=== PATIENT | female | born 1975 | race Caucasian/White ===

== ENCOUNTER → 2016-06-22 | Outpatient (CLI) | payer BC, OTHER ==
--- NOTE | 2016-06-22 09:50 | USB ---
Reason for exam: follow-up at short interval from prior study. History: Benign US biopsy breast VAD LT of the left breast, November 12, 2015. Benign US biopsy breast add'l VAD LT of the left breast, November 12, 2015. Taking hormonal contraceptives for 18 years. Physical Findings: Nurse did not find any significant physical abnormalities on exam. US Breast LT Left breast ultrasound including all four quadrants, the retroareolar region and axilla demonstrates a 0.8 x 0.4 x 0.8cm oval, cystic lesion at 2 o'clock, a 0.6 x 0.3 x 0.5cm oval, cystic lesion at 2 o'clock, a 0.4 x 0.4 x 0.6cm oval, mixed lesion at 2 o'clock, clip seen, recently biopsied and has the appearance of a cyst cluster now, a 0.9 x 0.7 x 1.7cm oval, cystic lesion at 3 o'clock and a 0.3 x 0.2 x 0.4cm oval lesion too small to characterize at 5 o'clock. A 6 month follow up mammogram recommended at which time patient will be due for annual exam. This can be performed in diagnostic clinic. These results were verbally communicated with the patient and result sheet given to the patient on 06/22/16. ASSESSMENT: Probably benign, BI-RAD 3 RECOMMENDATION: Follow-up diagnostic mammogram of both breasts in 6 months. FOX
== END | disposition home or self-care (01) ==
LOC: RADUSWWP 08:47
PROVIDERS: ATTEND Surgery
DX: R92.8 Other abnormal and inconclusive findings on diagnostic imaging of breast (principal)

== ENCOUNTER → 2016-12-27 | Outpatient (CLI) | payer BC, OTHER ==
--- NOTE | 2016-12-27 08:36 | MM ---
Reason for exam: additional evaluation requested from prior study. Last mammogram was performed 1 year and 1 month ago. History: Family history of breast cancer in 3 paternal aunts at age 50. Benign US biopsy breast VAD LT of the left breast, November 12, 2015. Benign US biopsy breast add'l VAD LT of the left breast, November 12, 2015. Taking hormonal contraceptives for 19 years. Physical Findings: Nurse Summary: 1 x 1cm nodule in the left breast at 1:30 (nurse ts). MG 3D Diag Mammo W/Cad ABHISHEK Bilateral CC and MLO view(s) were taken. Prior study comparison: November 12, 2015, left breast MG diagnostic mammo LT wo CAD. October 30, 2015, bilateral MG 3d screening mammo w/cad. The breast tissue is heterogeneously dense. This may lower the sensitivity of mammography. No suspicious calcifications are seen. Focal asymmetry bilateral upper outer quadrant, 8.3cm from the right nipple and 9.3cm from the left nipple. These results were verbally communicated with the patient and result sheet given to the patient on 12/27/16. ASSESSMENT: Incomplete: need additional imaging evaluation, BI-RAD 0 RECOMMENDATION: Ultrasound of both breasts. Manage patient on a clinical basis.
--- NOTE | 2016-12-27 08:38 | USB ---
Reason for exam: additional evaluation requested from abnormal screening. History: Family history of breast cancer in 3 paternal aunts at age 50. Benign US biopsy breast VAD LT of the left breast, November 12, 2015. Benign US biopsy breast add'l VAD LT of the left breast, November 12, 2015. Taking hormonal contraceptives for 19 years. US Breast Limited BILAT Right breast ultrasound demonstrates a 13 x 6 x 8mm cystic cluster at 10 o'clock, 6.5cm from nipple. Left breast ultrasound demonstrates a 14 x 7 x 17mm cystic lesion at BB at 2 o'clock, 8.2cm from nipple. These results were verbally communicated with the patient and result sheet given to the patient on 12/27/16. ASSESSMENT: Benign, BI-RAD 2 RECOMMENDATION: Routine screening mammogram of both breasts in 1 year.
== END | disposition home or self-care (01) ==
LOC: RADMAMWWP 06:58
PROVIDERS: ATTEND Surgery
DX: R92.8 Other abnormal and inconclusive findings on diagnostic imaging of breast (principal); R92.2 Inconclusive mammogram
CPT/HCPCS: 76642; G0204; G0279

== ENCOUNTER → 2019-02-18 | Outpatient (CLI) | payer BC ==
[2019-02-18 12:46] LABS: Basophils # (A) 0.1 k/uL (0-0.2); Basophils % (A) 1 %; Eosinophils # (A) 0.3 k/uL (0-0.7); Eosinophils % (A) 4 %; HCT 44.8 % (34.0-46.0); HGB 14.5 gm/dL (11.4-16.0); Lymphocytes # (A) 2.4 k/uL (1.0-4.8); Lymphocytes % (A) 33 %; MCH 29.2 pg (25.0-35.0); MCHC 32.4 g/dL (31.0-37.0); Mean Platelet Volume 8.2; Monocytes # (A) 0.2 k/uL (0-1.0); Monocytes % (A) 3 %; Neutrophils # (A) 4.3 k/uL (1.3-7.7); Neutrophils % (A) 57 %; Platelet Count 279 k/uL (150-450); RBC 4.98 m/uL (3.80-5.40); RDW 12.1 % (11.5-15.5); WBC 7.4 k/uL (3.8-10.6)
== END | disposition home or self-care (01) ==
LOC: LABPAT 11:24
PROVIDERS: ATTEND Obstetrics & Gynecology Obstetrics
DX: Z01.818 Encounter for other preprocedural examination (principal); Z01.812 Encounter for preprocedural laboratory examination; I10 Essential (primary) hypertension
CPT/HCPCS: 36415; 85025; 93005

== ENCOUNTER → 2019-02-19 | Outpatient (CLI) | payer BC ==
--- NOTE | 2019-02-19 09:30 | MM ---
Reason for exam: screening (asymptomatic). Last mammogram was performed 2 years and 2 months ago. History: Family history of breast cancer in 3 paternal aunts at age 50. Benign US biopsy breast VAD LT of the left breast, November 12, 2015. Benign US biopsy breast add'l VAD LT of the left breast, November 12, 2015. Taking hormonal contraceptives for 19 years. Physical Findings: A clinical breast exam by your physician is recommended on an annual basis and results should be correlated with mammographic findings. MG 3D Screening Mammo W/Cad Bilateral CC and MLO view(s) were taken. Prior study comparison: December 27, 2016, bilateral MG 3d diag mammo w/cad ABHISHEK. November 12, 2015, left breast MG diagnostic mammo LT wo CAD. The breast tissue is heterogeneously dense. This may lower the sensitivity of mammography. Bilateral upper outer quadrant focal asymmetries correlate with cysts on the prior ultrasound. Two left biopsy markers noted. ASSESSMENT: Benign, BI-RAD 2 RECOMMENDATION: Routine screening mammogram of both breasts in 1 year.
== END | disposition home or self-care (01) ==
LOC: RADMAMWWP 07:00
PROVIDERS: ATTEND Obstetrics & Gynecology Obstetrics
DX: Z12.31 Encounter for screening mammogram for malignant neoplasm of breast (principal); Z80.3 Family history of malignant neoplasm of breast
CPT/HCPCS: 77063; 77067

== ENCOUNTER 2019-03-05 07:32 | Day surgery (SDC) | payer BC ==
[2019-03-01 09:47] VITALS: BMI 28.3
[~2019-03-05 07:32] MED LIST: DEXAMETHASONE SOD PHOSPHATE 10 MG/ML 1 ML VIAL IV ONE; HYDROmorphone 0.5 MG/0.5 ML SYRINGE IVP PRN; LACTATED RINGERS 1,000 ML IV SCH; LIDOCAINE 1% 20 ML VIAL (10MG/ML) FOR IV START INTRADERMA PRN; ONDANSETRON 4 MG/2 ML VIAL IVP ONE; Pre Op ABX Message 1 EACH MISC MISCELLANE ONE; fentaNYL (PF) 50 MCG/ML 2 ML AMP IV PRN
--- NOTE | 2019-03-05 08:01 | P.HPOB ---
History of Present Illness H&P Date: 03/05/19 Chief Complaint: retained IUD, failed office removal This is a 43 yo female with Mirena IUD in place, and is due for removal. she hasnt had any problem so far with her IUD. She does desire another Mirena as it has worked well for her. she denies any VB with her IUD. Review of Systems Constitutional: Denies chills, Denies fatigue, Denies fever Ears, nose, mouth and throat: Denies headache Cardiovascular: Denies leg edema Respiratory: Denies dyspnea Gastrointestinal: Denies nausea, Denies vomiting Genitourinary: Denies Past Medical History Past Medical History: Hyperlipidemia, Hypertension History of Any Multi-Drug Resistant Organisms: None Reported Past Surgical History: Cholecystectomy Past Anesthesia/Blood Transfusion Reactions: Motion Sickness Smoking Status: Never smoker - Past Family History Mother Family Medical History: No Reported History Medications and Allergies Home Medications Medication Instructions Recorded Confirmed Type Hydrochlorothiazide [Hydrodiuril] 25 mg PO DAILY 01/11/14 03/01/19 History Lisinopril [Prinivil] 10 mg PO DAILY 01/11/14 03/01/19 History Ergocalciferol [Vitamin D2] 50,000 unit PO MON 03/01/19 03/01/19 History Allergies Allergy/AdvReac Type Severity Reaction Status Date / Time No Known Allergies Allergy Verified 03/01/19 09:23 Exam Osteopathic Statement: *. No significant issues noted on an osteopathic structural exam other than those noted in the History and Physical/Consult. targeted physical exam done on this date, in general this is a well nourished well developed female in NAD, breathing is noted ot be non labored and heart has a RRR, abdomen is soft and non tender, uterus is mobile and not enlarged, no adnexal masses are noted. Assessment and Plan (1) IUD (intrauterine device) in place Current Visit: Yes Status: Acute Code(s): Z97.5 - PRESENCE OF (INTRAUTERINE) CONTRACEPTIVE DEVICE SNOMED Code(s): 398649921 (2) Contraception management Current Visit: Yes Status: Acute Code(s): Z30.9 - ENCOUNTER FOR CONTRACEPTIVE MANAGEMENT, UNSPECIFIED SNOMED Code(s): 768645591 Plan: failed office removal of her IUD as strings are noted visualized or in the endometrial canal. she was unable to tolerate removal or dilation in the office. she does desire another IUD to be placed at the time of removal. procedure reviewed and questions answered. plan Hysteroscopic removal of IUD, and mirena IUD insertion.
[2019-03-05] MEDS ORDERED: SCOPOLAMINE 1.5MG/72HR PATCH TRANSDERM ONE (08:22)
[2019-03-05] MEDS ORDERED: LIDOCAINE 1% INJ 10MG/ML (20 ML MDV) ONE (08:28)
[2019-03-05] MEDS ORDERED: PROPOFOL 10 MG/ML 20 ML VIAL IV ONE (08:28)
[2019-03-05] MEDS ORDERED: KETOROLAC 30 MG/ML 1 ML VIAL ONE (08:28)
--- NOTE | 2019-03-05 09:10 | P.OP ---
Date of Procedure: 03/05/19 Preoperative Diagnosis: Retained IUD, failed office removal, contraceptive management with desire for IUD placement Postoperative Diagnosis: Same plus endometrial polyp Procedure(s) Performed: Dilation and curettage, hysteroscopy removal of IUD reinsertion of Mirena IUD Anesthesia: MAC Surgeon: Betty Khan Estimated Blood Loss (ml): 5 IV fluids (ml): 200 Urine output (ml): 100 Pathology: other (Endometrial curettings) Condition: stable Disposition: PACU Indications for Procedure: Failed office removal of IUD secondary to patient discomfort, strings not being visualized. Operative Findings: Proliferative endometrium with endometrial polyp, IUD within the endometrial cavity strings above the internal cervical os Description of Procedure: Patient was seen in the preoperative area and procedures reviewed all questions are answered. Patient was taken back to the operating suite where general anesthesia was obtained without difficulty by the anesthesia department. She was prepped and draped in the normal sterile fashion in the dorsal lithotomy position. A red rubber catheter was then used to drain the bladder of clear yellow urine. A weighted speculum was placed in the posterior vaginal vault the interval of the cervix is visualized and grasped with a single-tooth tenaculum. Endocervical canal was then dilated to 15-Finnish the polyp forceps were then use d to remove the IUD intact hysteroscope was then placed through the cervix and toward the endometrial cavity and the polyp was noted. A sharp curettage was then performed. The specimen was then sent to pathology for analysis. The Mirena IUD was then opened and set to 9 cm per uterine length. After insertion the strings were trimmed all instruments were removed from the patient's vaginal vault. Hemostasis was noted from the single-tooth tenaculum sites. patient tolerated procedure well all counts are correct 2, and she was taken to the recovery room awake in stable condition.
[2019-03-05 09:16] VITALS: TEMP 97
[2019-03-05 09:41] VITALS: RESP 18
[2019-03-05 10:19] VITALS: BP 108/63; PULSE 68
== END 2019-03-05 10:36 | disposition home or self-care (01) ==
LOC: OR 07:32
PROVIDERS: ATTEND Obstetrics & Gynecology Obstetrics
DX: Z30.433 Encounter for removal and reinsertion of intrauterine contraceptive device (principal); N84.0 Polyp of corpus uteri; I10 Essential (primary) hypertension; E78.5 Hyperlipidemia, unspecified; Z90.49 Acquired absence of other specified parts of digestive tract; Z79.899 Other long term (current) drug therapy
CPT/HCPCS: 81025; 88305; 58562; 58300; J1100; J2405; J2001; J1885; J2704; J1170

== ENCOUNTER → 2020-07-01 | Outpatient (CLI) | payer BC ==
--- NOTE | 2020-07-03 13:39 | MM ---
Reason for exam: screening (asymptomatic). Last mammogram was performed 1 year and 4 months ago. History: Family history of breast cancer in 3 paternal aunts at age 50. Benign US biopsy breast VAD LT of the left breast, November 12, 2015. Benign US biopsy breast add'l VAD LT of the left breast, November 12, 2015. Taking hormonal contraceptives for 19 years. Physical Findings: A clinical breast exam by your physician is recommended on an annual basis and results should be correlated with mammographic findings. MG 3D Screening Mammo W/Cad Bilateral CC and MLO view(s) were taken. Prior study comparison: February 19, 2019, bilateral MG 3d screening mammo w/cad. December 27, 2016, bilateral MG 3d diag mammo w/cad ABHISHEK. The breast tissue is heterogeneously dense. This may lower the sensitivity of mammography. Focal asymmetry upper outer right breast. ASSESSMENT: Incomplete: need additional imaging evaluation, BI-RAD 0 RECOMMENDATION: Special view mammogram of the right breast. If lesion persists on supplemental views, image directed ultrasound is recommended. [facility] will attempt to contact patient to return for supplemental views and ultrasound if indicated.
== END | disposition home or self-care (01) ==
LOC: RADMAMWWP 07:53
PROVIDERS: ATTEND Family Medicine
DX: Z12.31 Encounter for screening mammogram for malignant neoplasm of breast (principal)
CPT/HCPCS: 77063; 77067

== ENCOUNTER → 2020-07-15 | Outpatient (CLI) | payer BC ==
--- NOTE | 2020-07-15 10:03 | MM ---
Reason for exam: additional evaluation requested from abnormal screening. Last mammogram was performed less than 1 month ago. History: Family history of breast cancer in 3 paternal aunts at age 50. Benign US biopsy breast VAD LT of the left breast, November 12, 2015. Benign US biopsy breast add'l VAD LT of the left breast, November 12, 2015. Taking hormonal contraceptives for 19 years. Physical Findings: Nurse did not find any significant physical abnormalities on exam. MG 3D Work Up W/Cad RT CC and MLO view(s) were taken of the right breast. Prior study comparison: July 01, 2020, bilateral MG 3d screening mammo w/cad. February 19, 2019, bilateral MG 3d screening mammo w/cad. The breast tissue is heterogeneously dense. This may lower the sensitivity of mammography. The upper outer quadrant focal asymmetry becomes less defined on additional views. Precautionary 6 month follow up recommended. These results were verbally communicated with the patient and result sheet given to the patient on 07/15/20. ASSESSMENT: Probably benign, BI-RAD 3 RECOMMENDATION: Follow-up diagnostic mammogram of the right breast in 6 months.
== END ==
LOC: RADMAMWWP 08:59
PROVIDERS: ATTEND Family Medicine
DX: R92.2 Inconclusive mammogram (principal); Z80.3 Family history of malignant neoplasm of breast
CPT/HCPCS: 77061; 77065

== ENCOUNTER → 2021-07-07 | Outpatient (CLI) | payer BC ==
--- NOTE | 2021-07-07 09:05 | MM ---
Reason for exam: additional evaluation requested from prior study. Last mammogram was performed 1 year ago. History: Family history of breast cancer in 3 paternal aunts at age 50. Benign US biopsy breast VAD LT of the left breast, November 12, 2015. Benign US biopsy breast add'l VAD LT of the left breast, November 12, 2015. Taking hormonal contraceptives for 19 years. Physical Findings: Nurse did not find any significant physical abnormalities on exam. MG 3D Diag Mammo W/Cad ABHISHEK Bilateral CC, MLO, and XCCL view(s) were taken. Prior study comparison: July 15, 2020, right breast MG 3d work up w/cad RT. July 01, 2020, bilateral MG 3d screening mammo w/cad. The breast tissue is heterogeneously dense. This may lower the sensitivity of mammography. There is no discrete abnormality including area of concern right upper outer quadrant. No significant new findings when compared with previous films. These results were verbally communicated with the patient and result sheet given to the patient on 07/07/21. ASSESSMENT: Benign, BI-RAD 2 RECOMMENDATION: Routine screening mammogram of both breasts in 1 year.
== END | disposition home or self-care (01) ==
LOC: RADMAMWWP 07:34
PROVIDERS: ATTEND Obstetrics & Gynecology Obstetrics
DX: R92.8 Other abnormal and inconclusive findings on diagnostic imaging of breast (principal); Z80.3 Family history of malignant neoplasm of breast
CPT/HCPCS: 77062; 77066

== ENCOUNTER → 2022-08-01 | Outpatient (CLI) | payer BC ==
--- NOTE | 2022-08-02 08:19 | MM ---
Reason for Exam: Screening (asymptomatic). Last mammogram was performed 1 year(s) and 1 month(s) ago. Patient History: Menarche at age 15. First Full-Term at age 22. Currently using Hormonal Contraceptives, for 19 years. 11/12/2015, Benign Core Biopsy on the left side. 11/12/2015, Benign Core Biopsy on the left side. Paternal aunt (Martha) had breast cancer, age 50. Paternal aunt (Ute) had breast cancer, age 50. Paternal aunt (Lucita) had breast cancer, age 50. Last menstrual period: 08/01/2022 Risk Values: Tawanna 5 year model risk: 1.7%. NCI Lifetime model risk: 12.0%. Prior Study Comparison: 07/01/2020 Bilateral Screening Mammogram, [facility]. 07/15/2020 Right Diagnostic Mammogram, [facility]. 07/07/2021 Bilateral Diagnostic Mammogram, [facility]. Tissue Density: The breast tissue is heterogeneously dense. This may lower the sensitivity of mammography. Findings: Analyzed By CAD. There is no suspicious group of microcalcifications or new suspicious mass in either breast. 2 biopsy clips demonstrated within the left breast. Chronic nodularity within the right breast. Overall Assessment: Benign, BI-RAD 2 Management: Screening Mammogram of both breasts in 1 year. A clinical breast exam by your physician is recommended on an annual basis and results should be correlated with mammographic findings. Electronically signed and approved by: Dequan Linn D.O.
== END | disposition home or self-care (01) ==
LOC: RADMAMWWP 16:31
PROVIDERS: ATTEND Family Medicine
DX: Z12.31 Encounter for screening mammogram for malignant neoplasm of breast (principal); Z80.3 Family history of malignant neoplasm of breast
CPT/HCPCS: 77063; 77067

== ENCOUNTER → 2023-11-02 | Outpatient (CLI) | payer BC ==
--- NOTE | 2023-11-06 13:12 | MM ---
Reason for Exam: Screening (asymptomatic). Last mammogram was performed 1 year(s) and 3 month(s) ago. Patient History: Menarche at age 15. First Full-Term at age 22. Currently using Hormonal Contraceptives, starting at age 33. 11/12/2015, Benign Core Biopsy on the left side. 11/12/2015, Benign Core Biopsy on the left side. Paternal aunt (Martha) had breast cancer, age 50. Paternal aunt (Ute) had breast cancer, age 50. Paternal aunt (Lucita) had breast cancer, age 50. Mother had breast cancer, left, age 66. Risk Values: Tawanna 5 year model risk: 3.3%. NCI Lifetime model risk: 23.4%. Prior Study Comparison: 12/27/2016 Bilateral Diagnostic Mammogram, [facility]. 02/19/2019 Bilateral Screening Mammogram, [facility]. 07/01/2020 Bilateral Screening Mammogram, [facility]. 07/15/2020 Right Diagnostic Mammogram, [facility]. 07/07/2021 Bilateral Diagnostic Mammogram, [facility]. 08/01/2022 Bilateral MG 3D screening mammo w/cad, [facility]. Tissue Density: There are scattered areas of fibroglandular density. Findings: Analyzed By CAD. Left breast biopsy clips. Right breast: There is no suspicious group of microcalcifications or new suspicious mass. Left breast: There is no suspicious group of microcalcifications or new suspicious mass. Overall Assessment: Negative, BI-RAD 1 Management: Screening Mammogram of both breasts in [address] [facility] will attempt to contact patient to return for supplemental views and ultrasound if indicated. Patient should continue monthly self-breast exams. A clinical breast exam by your physician is recommended on an annual basis. This exam should not preclude additional follow-up of suspicious palpable abnormalities. Note on Tawanna scores and lifetime risk: 1. A Tawanna score greater than 3% is considered moderate risk. If this is the case, consider specialist referral to assess eligibility for a risk reducing agent. 2. If overall lifetime risk for the development of breast cancer is 20% or higher, the patient may qualify for future screening with alternating mammogram and breast MRI. Electronically signed and approved by: Tyron Hodge DO
== END | disposition home or self-care (01) ==
LOC: RADMAMWWP 07:26
PROVIDERS: ATTEND Family Medicine
DX: Z12.31 Encounter for screening mammogram for malignant neoplasm of breast (principal); Z80.3 Family history of malignant neoplasm of breast
CPT/HCPCS: 77063; 77067